=== PATIENT | female | born 1985 | race Hispanic/Latino ===

== ENCOUNTER 2016-09-30 16:06 | Emergency (ER) | payer OTHER ==
[~2016-09-30 16:06] MED LIST: GLU500 PO; INSLEVPEN SUBQ; PHEN30SP4 NS
--- NOTE | 2016-09-30 16:20 | ED.REPORT ---
HPI-Neurologic Deficit Date of Service Sep 30, 2016 ED Provider: Dr. Lahsa Rubi MD A 30 year old female with a history of diabetes mellitus presents to the ED complaining of bilateral leg and arm numbness that began at 1500 this afternoon. Associated symptoms include weakness in the bilateral lower extremities, headache, blurry vision, vomiting, dizziness, speech disturbance and shaking chills. Her BS was recorded in the 300's at work this afternoon and she took 2 units of insulin. Patient reports similar symptoms during her that resolved without intervention. She denies cough, rhinorrhea, abdominal pain, dysphagia, one-sided weakness, or facial asymmetry. She denies history of stroke. Pt denies any chance of . Nursing Notes Stated Complaint: VOMITTING Chief Complaint: General Complaint Nursing Notes Reviewed: Yes Allergies: Coded Allergies: hydrocodone (Verified Allergy, Severe, STOMACH IRRITATION,NAUSEA,ITCHING, 09/30/16) hydromorphone HCl (Verified Allergy, Intermediate, nauseated, 09/30/16) ketorolac (Verified Allergy, Unknown, 09/30/16) Scheduled Insulin DETEMIR -Expunged Drug, Do Not Renew! (Levemir-Expunged Drug, Do Not Renew!) 3 Ml Syringe 18 UNIT SUBQ AM Metformin-Expunged Drug, Do Not Renew! (Metformin-Expunged Drug, Do Not Renew!) 500 Mg Tablet 500 MG PO BID TAKE WITH EVENING MEAL Phenylephrine Hcl (Nasal [place]) 30 Ml [place] 30 ML NS DAILY General Time Seen by Provider: 16:21 Chief Complaint Weakness leg... (Both) Hx Obtained From: Patient Arrived By: Walk-in Sudden in Onset?: No Onset Occurred: 1 - 4 hours ago Symptom Duration: Since onset Progression Since Onset: Unchanged Location: : Head Quality: Aching Radiation: : Does not radiate Severity: Current: Mild Severity: Maximum: Moderate Associated with: Reports: Chest pain, Headache, Vomiting, Weakness Pertinent Negative: Pt denies other symptoms Recent Healthcare: No recent doctor visit, No recent hospitalization Risk Factors NIH Stroke Scale Level of Consciousness: Alert and responsive (0) Ask Month & Age: Both questions right (0) Open/Close Eyes/Hand Chocolate Maker: Performs both tasks (0) Horizontal EO Movements: None (0) Visual Hartman: No visual loss (0) Facial Palsy: Normal symmetry (0) Right Arm Motor Drift (10s): No drift 10 sec (0) Left Arm Motor Drift (10s): No drift 10 sec (0) Right Leg Motor Drift (5s): No drift 5 sec (0) Left Leg Motor Drift (5s): No drift 5 sec (0) Limb Ataxia FNF/Heel-Gracia: No ataxia (0) Sensation (Arms/Legs/Face): No sensory loss (0) Language Aphasia: No aphasia, normal (0) Dysarthria: No dysarthria, normal (0) Extinction/Inattention: No exctinct/inattent (0) NIHSS Score: 0 Time NIHSS Performed: 16:27 Past Medical History Past Medical History Reports: Diabetes mellitus Past Surgical History None reported. Smoking History Unknown if Ever Smoker Social History Other Social History: Local resident Ambulatory Status Independent Review of Systems Constitutional: Reports: Chills Eyes: Reports: Blurred bilateral Cardiovascular: Reports: Chest pain GI: Reports: Vomiting, Denies: Abdominal pain Neurologic: Reports: Dizziness, Focal weakness, Headache, Lightheaded, Numbness , Shaking, Slurred speech (difficulty speaking), Weakness Complete sys rev & neg: except as marked. Physical Exam Initial Vital Signs Vital Signs (First) Date Time Temp Pulse Resp B/P Pulse Ox O2 Delivery O2 Flow Rate FiO2 09/30/16 16:22 73 16 116/78 99 09/30/16 19:50 36.9 Room Air Initial VS: Reviewed Neck: Supple, Non-tender, Full range of motion Extremities: Vascular intact, Neuro intact, No swelling, No tenderness Skin: Warm, Dry, No cyanosis Psychiatric: Mood/affect normal, Behavior normal, Normal thought content General/Constitutional: Awake, Alert, No acute distress Head / Eyes: Atraumatic, Normocephalic, PERRL, EOMI Respiratory / Chest: Atraumatic, Breath sounds NL, Breath sounds = bilat, No respiratory distress Cardiovascular: Heart rate NL, Regular rhythm, Heart sounds NL, No murmurs Neurologic: Oriented X3, Speech NL, No motor deficits, No sensory deficits, CN II - XII intact, Reflexes equal bilat, Cerebellar NL, Memory NL NERUO: See NIH stroke scale in risk (NIH = 0) Abdomen: Atraumatic, Soft, Non-tender Interpretation & Diagnostics Lab Results Interpretation Result Diagram: 09/30/16 1700 09/30/16 1700 Test 09/30/16 17:00 White Blood Count 8.8th/mm3 (3.8-10.1) Red Blood Count 4.82mil/mm3 (3.90-5.20) Hemoglobin 13.7g/dL (12.0-15.6) Hematocrit 40.7% (35.0-46.0) Mean Corpuscular Volume 84.4fL (81-100) Mean Corpuscular Hemoglobin 28.4pg (27.0-35.0) Mean Corpuscular Hemoglobin Concent 33.7% (32.0-37.0) Red Cell Distribution Width 13.5% (12.3-15.4) Platelet Count 211bil/L (150-400) Neutrophils (%) (Auto) 50.0% (40-74) Lymphocytes (%) (Auto) 40.3% (14-46) Monocytes (%) (Auto) 7.4% (4-12) Eosinophils (%) (Auto) 1.6% (0-5) Basophils (%) (Auto) 0.5% (0-3) Sodium Level 135mEq/L (134-144) Potassium Level 3.8mEq/L (3.5-5.2) Chloride Level 96mEq/L (97-108) Carbon Dioxide Level 22mmol/L (18-29) Blood Urea Nitrogen 13mg/dL (6-20) Creatinine 0.42mg/dL (0.57-1.00) Estimat Glomerular Filtration Rate 250mL/min (>59) Glucose Level 245mg/dL (60-99) Calcium Level 9.7mg/dL (8.5-10.1) Total Bilirubin 0.4mg/dL (0.0-1.2) Aspartate Amino Transf (AST/SGOT) 59U/L (0-50) Alanine Aminotransferase (ALT/SGPT) 76U/L (0-32) Alkaline Phosphatase 82U/L (25-150) Troponin T < 0.010ug/L (0.0-0.011) Total Protein 7.7g/dL (6.4-8.4) Albumin 4.1g/dL (3.4-5.0) Hold Roach Top Tube Received (Received) ECG Interpretation ECG Interpretation: Sinus Rhythm Rate 80 No STT changes Q waves in AVR unchanged from prior Time: 16:43 Interpreted by: ED physician X-Ray Chest Interpretation Chest Xray Interpretation: IMPRESSION: No acute cardiopulmonary findings. Dictated by: Gale Corona M.D. on 09/30/2016 at 17:32 Interpretation / Wet Read by: Interpret - Radiologist CT Head Interpretation IMPRESSION: 1. No acute intracranial findings. If there is high clinical suspicion for acute or subacute infarct, MRI of the brain may be helpful. 2. Fluid-filled left mastoid air cells suspicious for mastoiditis. Dictated by: Gale Corona M.D. on 09/30/2016 at 17:02 Study: Head CT no contrast Interpretation / Wet Read by: Interpret - Radiologist Re-Eval/Medical Decision Med Decision/Clinical Course 30-year-old female history of anxiety presenting with bilateral arm numbness and leg numbness started earlier today. Her INH stroke scale is 0. She had no other neurological deficits. Her labs are unremarkable. Her CT head was negative. All of her symptoms resolved when she was here. I do not believe she had a stroke though I cannot completely rule out a TIA symptoms were very vague and nonfocal. And her complaint of numbness was. Subjective as her sensation exam was normal. Patient requests to be discharged per G did not want to be admitted to the hospital. She will return if her symptoms return or if any other new or worsening symptoms. Re-Evaluation/Progress : Time of Eval: 18:27 Re-Evaluation/Progress Note: Patient is rechecked. She is informed of her results and diagnosis. All questions about the intended treatment plan are addressed. She agrees to follow up with her PCP for further evaluation. Counseled Regarding: Diagnosis, Lab results, Need for follow-up, When/why to return to ED Discharge & Departure Impression: Primary Impression: Numbness and tingling of left upper and lower extremity Additional Impression: Headache Headache type: unspecified Headache chronicity pattern: acute headache Intractability: not intractable Qualified Code: R51 - Headache Ruled Out: CVA (cerebral vascular accident) Disposition: Home Discharge Condition All VS Reviewed: Yes Condition: Improved Patient Instructions: Acute Headache (ED) Additional Instructions: Thank you for trusting us with your care this evening. Your emergency department results including lab work, EKG, chest X-ray and head CT are reassuring that there is no dangerous cause for concern at this time. A clear cause of your symptoms was not identified and I recommend that you schedule a follow up appointment with your primary care physician in the next 2- 3 days for a recheck. Please return to the emergency department if you begin to develop any new or worsening conditions including any dizziness, lightheadedness, facial asymmetry , one-sided weakness, worsening numbness/tingling or weakness. Referrals: Silvia Clements MD (PCP) [facility] Scribe Attestation Portions of this note were transcribed by Tessy Geller. I, Dr. Rubi personally performed the history, physical exam and medical decision-making; I reviewed and confirmed the accuracy of the information in the transcribed note. Signed by: Fatemeh Camargo, 09/30/16 1830. copies to: Silvia Clements MD, Ben M MD Sep 30, 2016 16:20 TESSY GELLER Sep 30, 2016 16:28
[2016-09-30 16:22] VITALS: BP 116/78; PULSE 73; RESP 16; O2SAT 99
[2016-09-30] MEDS ORDERED: 0.9% Sodium Chloride 1,000 ML IV ONE (16:30)
--- NOTE | 2016-09-30 17:06 | DRSVH ---
PROCEDURE: CT BRAIN WITHOUT CONTRAST ([id number]) INDICATIONS: L arm numbness TECHNIQUE: Noncontrast 4.5 mm thick angled axial sections acquired from the foramen magnum to the vertex, with c oronal reformats. COMPARISON: None. FINDINGS: Image quality: Excellent. CSF spaces: Basal cisterns are patent. No extra-axial fluid collections. Ventricles are normal in size and shape. Brain: No midline shift. No intracranial masses or hemorrhage. Branch-white matter interface is norm al. Skull and face: Calvarium and visualized facial bones are intact, without suspicious lesions. Sinuses: The left mastoid air cells are fluid-filled. Visualized sinuses and mastoids are otherwise clear. IMPRESSION: 1. No acute intracranial findings. If there is high clinical suspicion for acute or subacute infarct, MRI of the brain may be helpful. 2. Fluid-filled left mastoid air cells suspicious for mastoiditis. Dictated by: Gale Corona M.D. on 09/30/2016 at 17:02 Approved by: Gale Corona M.D. on 09/30/2016 at 17:04
[2016-09-30 17:15] LABS: BASOPHILS % (AUTO) 0.5 % (0-3); EOSINOPHILS % (AUTO) 1.6 % (0-5); MONOCYTES % (AUTO) 7.4 % (4-12); Mean Corpuscular Hemoglobin 28.4 pg (27.0-35.0); Mean Corpuscular Volume 84.4 fL (81-100); Platelet Count 211 bil/L (150-400)
--- NOTE | 2016-09-30 17:34 | DRSVH ---
PROCEDURE: X-RAY CHEST ONE VIEW, PORTABLE ([id number]) INDICATIONS: chest pain TECHNIQUE: One view of the chest was acquired. COMPARISON: [facility], CR, CHEST 2VW, 05/04/2013, 0:57. FINDINGS: Surgical changes and devices: None. Lungs and pleura: No pleural effusions or pneumothorax. Lungs are clear. Mediastinum: Mediastinal contours appear normal. Heart size is normal. Bones and chest wall: No suspicious bony lesions. Overlying soft tissues appear unremarkable. IMPRESSION: No acute cardiopulmonary findings. Dictated by: Gale Corona M.D. on 09/30/2016 at 17:32 Approved by: Gale Corona M.D. on 09/30/2016 at 17:32
[2016-09-30 18:01] LABS: TROPONIN T < 0.010 ug/L (0.0-0.011)
[2016-09-30 19:50] VITALS: BP 121/65; PULSE 82; RESP 12; O2SAT 95
== END 2016-09-30 19:51 | disposition home or self-care (01) ==
LOC: SED 16:06 → EDBD 16:06 → SED 19:51
DX: R20.0 Anesthesia of skin (principal); R51 Headache; Z88.8 Allergy status to other drugs, medicaments and biological substances; Z88.5 Allergy status to narcotic agent; E11.9 Type 2 diabetes mellitus without complications; R07.9 Chest pain, unspecified; R11.10 Vomiting, unspecified; R53.1 Weakness; R42 Dizziness and giddiness; H53.8 Other visual disturbances; R68.83 Chills (without fever)
CPT/HCPCS: 36415; 70450; 71010; 80053; 81025; 82948; 84484; 85025; 93005; 96361; 96374; 99285; J2270; J7030